=== PATIENT | female | born 1990 | race Caucasian/White ===

== ENCOUNTER 2017-09-16 13:44 | Emergency (ER) | payer SELFPAY ==
[2017-09-16] MEDS ORDERED: Benzonatate 100 MG CAP ONE (14:42)
--- NOTE | 2017-09-16 14:47 | RAD ---
PORTABLE UPRIGHT FRONTAL CHEST RADIOGRAPH: 09/16/2017 HISTORY: Flu like symptoms. Cough. COMPARISON: None. FINDINGS: Bibasilar patchy air space opacity noted, left greater than right. No pneumothorax. Heart and media stinal contour unremarkable. No large volume pleural effusion. IMPRESSION: Focal areas of air space disease noted in both lung bases. Findings suggest multilobar infectious pn eumonitis or aspiration. Short-term follow-up imaging following treatment advised to document resolu tion. POS: [facility]
== END 2017-09-16 14:50 | disposition home or self-care (01) ==
LOC: SCSER 13:44
DX: J18.9 Pneumonia, unspecified organism (principal); F17.210 Nicotine dependence, cigarettes, uncomplicated
CPT/HCPCS: 71045